=== PATIENT | female | born 1955 | race Caucasian/White ===

== ENCOUNTER → 2018-04-15 | Outpatient (REF) | payer OTHER ==
[2018-04-15 13:12] LABS: ALBUMIN 3.6 GM/DL (3.2-5.2); ALBUMIN/GLOBULIN RATIO 1.03 (1.00-1.93); ALKALINE PHOSPHATASE 66 U/L (45-117); ALT/SGPT 27 U/L (12-78); ANION GAP 8 MEQ/L (8-16); AST/SGOT 23 U/L (7-37); BILIRUBIN,TOTAL 0.6 MG/DL (0.2-1.0); BLOOD UREA NITROGEN 22 MG/DL (7-18); CALCIUM LEVEL 9.4 MG/DL (8.8-10.2); CARBON DIOXIDE LEVEL 29 MEQ/L (21-32); CHLORIDE LEVEL 104 MEQ/L (98-107); CHOLESTEROL LEVEL 224 MG/DL (<200); CHOLESTEROL RISK RATIO 2.461 (<5); CREATININE FOR GFR 1.12 MG/DL (0.55-1.30); FREE T4 1.03 NG/DL (0.76-1.46); GLOMERULAR FILTRATION RATE 52.3 (>45); GLUCOSE, FASTING 96 MG/DL (70-100); HDL CHOLESTEROL 91 MG/DL (>40); LDL CHOLESTEROL 122.6 MG/DL (<100); NON-HDL-C 133 MG/DL; POTASSIUM SERUM 4.7 MEQ/L (3.5-5.1); SODIUM LEVEL 141 MEQ/L (136-145); THYROID STIMULATING HORMONE 0.065 uIU/ML (0.358-3.740); TOTAL PROTEIN 7.1 GM/DL (6.4-8.2); TRIGLYCERIDES LEVEL 52 MG/DL (<150)
[2018-04-15 16:47] LABS: TOTAL 25(OH) VITAMIN D 91.8 NG/ML (30.0-100.0)
== END ==
LOC: M LABDRAW1 12:01
DX: E06.3 Autoimmune thyroiditis (principal)

== ENCOUNTER → 2019-03-18 | Outpatient (REF) | payer OTHER ==
[2019-03-19 11:29] LABS: HEMATOCRIT 42.1 % (36.0-47.0); HEMOGLOBIN 13.8 g/dl (12.0-15.5); MEAN CORPUSCULAR HEMOGLOBIN 31.6 pg (27.0-33.0); MEAN CORPUSCULAR HGB CONC 32.8 g/dl (32.0-36.5); MEAN CORPUSCULAR VOLUME 96.3 fl (80.0-96.0); PLATELET COUNT, AUTOMATED 154 10^3/uL (150-450); RED BLOOD COUNT 4.37 10^6/uL (4.00-5.40); WHITE BLOOD COUNT 4.9 10^3/uL (4.0-10.0)
[2019-03-19 11:44] LABS: ALBUMIN 3.7 GM/DL (3.2-5.2); ALT/SGPT 22 U/L (12-78); BILIRUBIN,TOTAL 0.6 MG/DL (0.2-1.0); BLOOD UREA NITROGEN 15 MG/DL (7-18); CALCIUM LEVEL 8.9 MG/DL (8.8-10.2); CARBON DIOXIDE LEVEL 28 MEQ/L (21-32); CHLORIDE LEVEL 107 MEQ/L (98-107); CHOLESTEROL LEVEL 170 MG/DL (<200); CHOLESTEROL RISK RATIO 2.236 (<5); CREATININE FOR GFR 0.91 MG/DL (0.55-1.30); FREE T4 1.57 NG/DL (0.76-1.46); GLOMERULAR FILTRATION RATE > 60.0 (>45); GLUCOSE, FASTING 92 MG/DL (70-100); HDL CHOLESTEROL 76 MG/DL (>40); LDL CHOLESTEROL 84 MG/DL (<100); NON-HDL-C 94 MG/DL; POTASSIUM SERUM 4.3 MEQ/L (3.5-5.1); SODIUM LEVEL 141 MEQ/L (136-145); THYROID STIMULATING HORMONE 0.007 uIU/ML (0.358-3.740); TOTAL PROTEIN 7.1 GM/DL (6.4-8.2); TRIGLYCERIDES LEVEL 49 MG/DL (<150)
== END ==
LOC: M LABDRAWC 11:09
PROVIDERS: ATTEND Internal Medicine Endocrinology, Diabetes & Metabolism
DX: E06.3 Autoimmune thyroiditis (principal); E78.00 Pure hypercholesterolemia, unspecified

== ENCOUNTER → 2019-05-27 | Outpatient (REF) | payer BC ==
[~2019-05-27] MED LIST: ALLERPLEX PO; ALPR0.5T3 PO; ASPI81TA85 PO; B-COTAB25 PO; BACITAB PO; CBD OIL SL; COQ-100C5 PO; CYTO5TAB8 PO; D31000CA4 PO; FLON1SPR NARES; FOLI1TAB11 PO; GINK60CA2 PO; LORA-674 PO; MAGN100T PO; MELA3TAB41 PO; METO1TAB32 PO; OXYC-517 PO; SIMV10TA2 PO; SYNT75TA PO; VENTAER INH
[2019-05-27 17:53] LABS: FREE T4 1.21 NG/DL (0.76-1.46); THYROID STIMULATING HORMONE 0.021 uIU/ML (0.358-3.740)
== END ==
LOC: M LABDRAWC 16:44
PROVIDERS: ATTEND Internal Medicine Endocrinology, Diabetes & Metabolism
DX: E06.3 Autoimmune thyroiditis (principal); E78.00 Pure hypercholesterolemia, unspecified

== ENCOUNTER 2019-05-30 09:39 | Observation (INO) | payer BC, OTHER ==
[~2019-05-30] VITALS: Ht 162.6 cm; Wt 74.2 kg
[2019-05-30] MEDS ORDERED: ONDANSETRON 4MG/2ML VIAL (J2405) IV ONE ×2 (09:45→11:45)
[2019-05-30] MEDS ORDERED: SYNT75TA PO (10:00)
[2019-05-30] MEDS ORDERED: NS 1,000 ML IV ONE (10:00)
[2019-05-30] MEDS ORDERED: METO1TAB32 PO (10:00)
[2019-05-30] MEDS ORDERED: CYTO5TAB8 PO (10:00)
[2019-05-30] MEDS ORDERED: FLON1SPR NARES (10:08)
[2019-05-30 10:24] LABS: BASO % 0.3 % (0.0-1.0); EOS % 0.6 % (0.0-3.0); HEMATOCRIT 40.3 % (36.0-47.0); HEMOGLOBIN 13.2 g/dl (12.0-15.5); LYMPH # 2.4 10^3/uL (1.5-5.0); MEAN CORPUSCULAR HGB CONC 32.8 g/dl (32.0-36.5); MEAN CORPUSCULAR VOLUME 94.6 fl (80.0-96.0); MONO # 0.7 10^3/uL (0.0-0.8); MONO % 10.1 % (0.0-5.0); NEUTROPHILS # 3.6 10^3/uL (1.5-8.5); NEUTROPHILS % 52.9 % (36.0-66.0); PLATELET COUNT, AUTOMATED 143 10^3/uL (150-450); RED BLOOD COUNT 4.26 10^6/uL (4.00-5.40); WHITE BLOOD COUNT 6.7 10^3/uL (4.0-10.0)
[2019-05-30 10:47] LABS: INR 1.1; PROTHROMBIN TIME 13.9 SECONDS (11.8-14.0)
[2019-05-30 10:48] LABS: PARTIAL THROMBOPLASTIN TIME 24.8 SECONDS (25.0-38.4)
[2019-05-30 10:57] LABS: ALBUMIN 3.3 GM/DL (3.2-5.2); ALT/SGPT 20 U/L (12-78); BILIRUBIN,DIRECT 0.1 MG/DL (0.0-0.2); BILIRUBIN,TOTAL 0.5 MG/DL (0.2-1.0); BLOOD UREA NITROGEN 15 MG/DL (7-18); CALCIUM LEVEL 8.5 MG/DL (8.8-10.2); CARBON DIOXIDE LEVEL 26 MEQ/L (21-32); CHLORIDE LEVEL 108 MEQ/L (98-107); CREATININE FOR GFR 0.83 MG/DL (0.55-1.30); GLOMERULAR FILTRATION RATE > 60.0 (>45); GLUCOSE, FASTING 91 MG/DL (70-100); LIPASE 63 U/L (73-393); POTASSIUM SERUM 4.1 MEQ/L (3.5-5.1); SODIUM LEVEL 141 MEQ/L (136-145); TOTAL PROTEIN 6.3 GM/DL (6.4-8.2)
[2019-05-30] MEDS ORDERED: MORPHINE 2 MG/ML 1ML SYRINGE (J2270) IV ONE (11:45)
--- NOTE | 2019-05-30 12:05 | REP ---
AP CHEST: 05/30/2019. Clinical history: Trauma. Findings: No prior study. This single frontal view shows the lungs well inflated and without infiltrate, effusion, atelectasis or mass. The heart, mediastinal and hilar contours are normal. Aorta and airway intact. No free air the diaphragm. No pneumothorax. Visualized bones without fracture or destructive lesion. Impression: 1. Negative chest for any acute finding. Electronically Signed by Farooq Yuen MD 05/30/2019 07:36 P
--- NOTE | 2019-05-30 12:05 | REP ---
AP LATERAL RIGHT HIP: 05/30/2019. Comparison: None. Clinical history: Trauma. Findings: AP and frog-leg views show small acetabular roof spur without femoral head spurs. There is no narrowing of the hip joint space, iliac wing and right SI joint grossly intact. The acetabulum, pubic rami without fracture. The SI joints, symphysis pubis were normal. Femoral head neck, trochanters and proximal shaft intact. No evidence of AVN. Minor degenerative changes lower lumbar spine. Impression: 1. There is minimal degenerative change at the hip with acetabular roof spurring but no joint space narrowing, fracture, AVN or other acute finding. Electronically Signed by Farooq Yuen MD 05/30/2019 07:36 P
--- NOTE | 2019-05-30 12:06 | REP ---
RIGHT TIBIA-FIBULA: 05/30/2019. Clinical history: Trauma. Comparison: Right ankle this date. Findings: Four views to encompass the entirety of the tibia and fibula were provided. Shaft of the tibia and fibula are intact. There is a bimalleolar fracture noted of the medial and lateral malleoli. The tibial plateau fracture. Minor degenerative changes at the knee. Minor soft tissue swelling lower leg and ankle. Impression: 1. Bimalleolar fracture noted. Remainder of the tibia and fibula unremarkable. Electronically Signed by Farooq Yuen MD 05/30/2019 07:36 P
--- NOTE | 2019-05-30 12:07 | REP ---
RIGHT ANKLE COMPLETE: 05/30/2019. Comparison: 05/30/2019 right tibia-fibula. Clinical history: Trauma. Findings: Four view show fracture through the medial malleolus parallel to the horizontal plane of the mortise joint. There is widening of the mortise joint medially. Some lateral subluxation of the talus on the tibial plafond is noted distal fibular fracture with intra-articular extension and lateral angulation of the distal fragment noted. On the lateral view there is no anterior posterior subluxation of the talus. Subtalar joints intact. No heel spurs. Talonavicular, calcaneocuboid joints grossly normal. Impression: 1. Bimalleolar fracture with displacement of the medial malleolar fragment and widening/asymmetry of the mortise joint including some mild lateral subluxation of the talus on the tibial plafond. Electronically Signed by Farooq Yuen MD 05/30/2019 07:37 P
[2019-05-30] MEDS ORDERED: COQ-100C5 PO (13:16)
[2019-05-30] MEDS ORDERED: MELA3TAB41 PO (13:16)
[2019-05-30] MEDS ORDERED: ALLERPLEX PO (13:16)
[2019-05-30] MEDS ORDERED: FOLI1TAB11 PO (13:16)
[2019-05-30] MEDS ORDERED: GINK60CA2 PO (13:16)
[2019-05-30] MEDS ORDERED: SIMV10TA2 PO (13:16)
[2019-05-30] MEDS ORDERED: MAGN100T PO (13:16)
[2019-05-30] MEDS ORDERED: LORA-674 PO (13:16)
[2019-05-30] MEDS ORDERED: BACITAB PO (13:16)
[2019-05-30] MEDS ORDERED: VENTAER INH (13:19)
[2019-05-30] MEDS ORDERED: ALPR0.5T3 PO (13:19)
[2019-05-30] MEDS ORDERED: B-COTAB25 PO (13:19)
[2019-05-30] MEDS ORDERED: D31000CA4 PO (13:19)
[2019-05-30] MEDS ORDERED: CBD OIL SL (13:20)
--- NOTE | 2019-05-30 14:28 | HPE ---
DATE OF CONSULTATION: 05/30/2019 HISTORY OF PRESENT ILLNESS: Bethany is a very pleasant 63-year-old female accompanied by her , who sustained a fall outside of her home on [address] in the [facility], when she slipped on some wet blocks. She injured herself just before midnight on 05/29/2019. She went to [facility] in [place] and x-rays there revealed a bimalleolar ankle fracture, according to the emergency room (ER) physician there that called me. She asked that the patient be transferred to [facility] for surgical management, as the [place] herself. They also did not have orthopedic surgery available there. The appropriate transfer was then carried out and she was also sent to [facility], but someone had evaluated her. She had previously been splinted, but got new x-rays and they revealed no fractures of the hip, but there was a bimalleolar ankle fracture with some subluxation. Patient is reporting moderate pain in her ankle. Denied numbness or tingling. She had pain in the knee from an abrasion. The patient's past medical history, past surgical history, medications, allergies, social history and review of systems: Please see the intake form from the ER. Of note, she does have a supraventricular tachycardia and takes metoprolol. To the past surgical history above, cervical and lumbar spine procedures. She did well with those. She does not smoke, abuse alcohol or illicit drugs. They spend most of the year down in [place] in [place], but they do have a house up here in the [facility]. She is very active. PHYSICAL EXAMINATION: Reveals a middle-aged female in no distress. She is alert and oriented times three. NEUROLOGIC: Appropriate mood and affect. She is very pleasant to talk to. CARDIOVASCULAR: 2+ posterior tibial (PT) and dorsalis pedis (DP) pulses. PULMONARY: Nonlabored breathing. ABDOMEN: Soft, nontender, nondistended. SKIN: In the right ankle reveals no open wounds. There is an abrasion over the right patella. There is mild to moderate swelling of the right ankle. There is a very subtle deformity consistent with lateral subluxation details. She is able to fire extensor hallucis longus (EHL) and flexor hallucis longus (FHL). Sensation light touch is grossly intact. X-rays of the right ankle from [facility] revealed a bimalleolar ankle fracture with some lateral subluxation of the talus. No proximal fractures on the tibia/fibula films. Hip x-rays were unremarkable. ASSESSMENT AND PLAN: Bethany is a 63-year-old female with an unstable bimalleolar right ankle fracture with subluxation. This requires open reduction internal fixation. We did discuss briefly some of the risks and benefits, but definitive surgery will be performed by Dr. Wanda Dixon, a foot/ankle specialist, and they will carry out a full conversation about risks and benefits. The patient will be admitted to my service and we will look to proceed with surgery as soon as an operating room (OR) is available at [facility]. The patient received some intravenous (IV) morphine and then I applied a well-padded sugar-tong splint made out of plaster, applied a Nam's maneuver and felt the talus reduce and then hold it there. The splint was set. She was elevated with three pillows.
[2019-05-30 14:30] VITALS: BP 115/63
[2019-05-30] MEDS ORDERED: ONDANSETRON 4MG/2ML VIAL (J2405) IV PRN ×2 (15:00→22:15)
[2019-05-30] MEDS ORDERED: MORPHINE 4 MG/ML 1ML VIAL/SYRINGE (J2270) IV PRN ×2 (15:00→23:30)
[2019-05-30] MEDS: LR 1,000 ML IV SCH ×2 (15:08→23:05)
[2019-05-30] MEDS ORDERED: ceFAZolin 2 GM/D5W 50 ML IV BAG (J0690 PER 500MG) As Ordered ONE (17:38)
[2019-05-30] MEDS ORDERED: ACETAMINOPHEN 1000MG 100ML IV BTL (OFIRMEV) (J0131 PER 10MG) As Ordered ONE (18:14)
[2019-05-30] MEDS ORDERED: HYDROmorphone HCL 2 MG/ML 1ML VIAL (J1170) As Ordered ONE (19:02)
[2019-05-30] MEDS ORDERED: fentaNYL 250 MCG/5 ML INJECTION (J3010) As Ordered ONE (19:05)
[2019-05-30] MEDS ORDERED: MIDAZOLAM INJ 2 MG/2 ML VIAL (J2250) As Ordered ONE (19:05)
[2019-05-30] MEDS ORDERED: ROCURONIUM BROMIDE 50 MG/5 ML VIAL As Ordered ONE (19:05)
[2019-05-30] MEDS ORDERED: LIDOCAINE 2% INJ 100 MG/5 ML SDV (FOR ANES.) As Ordered ONE (19:05)
[2019-05-30] MEDS ORDERED: ONDANSETRON 4MG/2ML VIAL (J2405) As Ordered ONE (19:05)
[2019-05-30] MEDS ORDERED: dexameTHASONE 4 MG/ML 1ML VIAL (J1100) As Ordered ONE (19:05)
[2019-05-30] MEDS ORDERED: PROPOFOL 200 MG/20 ML VIAL As Ordered ONE (19:05)
--- NOTE | 2019-05-30 19:24 | ECGEPIP ---
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
[2019-05-30] MEDS ORDERED: BUPIVACAINE HCL 0.5% 30 ML VIAL As Ordered ONE (19:43)
[2019-05-30] MEDS ORDERED: LABETALOL HCL 100 MG/20 ML VIAL As Ordered ONE (20:11)
[2019-05-30] MEDS ORDERED: SUGAMMADEX SODIUM 500 MG/5 ML VIAL (BRIDION) As Ordered ONE (20:54)
[2019-05-30] MEDS ORDERED: NALOXONE INJ 0.4 MG/1 ML VIAL (J2310) As Ordered ONE (21:48)
[2019-05-30] MEDS ORDERED: LR 1,000 ML IV SCH (22:15)
[2019-05-30] MEDS ORDERED: fentaNYL 100 MCG/2 ML INJECTION (J3010) IV PRN (22:15)
[2019-05-30] MEDS ORDERED: PERCOCET 5MG/325MG TAB PO PRN (22:15)
[2019-05-30 23:00] VITALS: BP 137/67
[2019-05-30 23:30] VITALS: BP 127/62
[2019-05-30] MEDS ORDERED: oxyCODONE 5MG TAB PO PRN (23:30)
[2019-05-30] MEDS: DOCUSATE SODIUM 100 MG CAP PO SCH (23:48)
[2019-05-30] MEDS: ASPIRIN 81 MG CHEW TABLET PO SCH (23:48)
[2019-05-31] VITALS (7 sets, daily range): BP systolic 120–135; BP diastolic 59–64
[2019-05-31] MEDS: ceFAZolin SOD 2 GM in IV 1 EA IV SCH ×2 (03:35→12:44)
[2019-05-31] MEDS: ACETAMINOPHEN 500 MG TAB PO SCH ×3 (05:09→21:07)
[2019-05-31] MEDS ORDERED: OXYC-517 PO (06:14)
[2019-05-31] MEDS ORDERED: ASPI81TA85 PO (06:14)
[2019-05-31] MEDS: ASPIRIN 81 MG CHEW TABLET PO SCH ×2 (09:35→21:07)
[2019-05-31] MEDS: DOCUSATE SODIUM 100 MG CAP PO SCH ×2 (09:35→21:07)
[2019-05-31] MEDS: oxyCODONE 5MG TAB PO PRN ×3 (09:37→18:56)
--- NOTE | 2019-05-31 10:26 | REP ---
RIGHT ANKLE COMPLETE: 05/30/2019. Clinical history: Bimalleolar fracture for ORIF in OR. 15 images from C-arm fluoroscopy provided to Dr. Dixon of the orthopedic division are reviewed. Comparison: Ankle series 05/30/2019. Findings: 15 views show placement of compression side plate and multiple screws in the distal fibula and two lag screws in the medial malleolus with re-establishment essentially anatomic alignment of the ankle mortise in both distal fibula and medial malleolar fractures. Fluoroscopy time: 4 minutes 1 second. Electronically Signed by Farooq Yuen MD 05/31/2019 01:09 P
[2019-06-01] MEDS: oxyCODONE 5MG TAB PO PRN ×3 (01:40→13:00)
[2019-06-01] MEDS: ACETAMINOPHEN 500 MG TAB PO SCH ×2 (05:12→12:59)
[2019-06-01 06:00] VITALS: BP 123/60
--- NOTE | 2019-06-01 07:52 | RO ---
DATE OF PROCEDURE: 05/30/2019 PREOPERATIVE DIAGNOSIS: Right bimalleolar ankle fracture. POSTOPERATIVE DIAGNOSIS: Right bimalleolar ankle fracture. PROCEDURE: Open reduction internal fixation (ORIF) right bimalleolar fracture. This will be with a modifier 22 for severely comminuted fracture and osteopenic bone. SURGEON: Wanda Dixon MD PUBLIC HEALTH ENGINEER: None. ANESTHESIA: GETA ESTIMATED BLOOD LOSS: 25 mL. COMPLICATIONS: None. IMPLANTS: Arthrex distal fibula locking plate with associated 2.7 mm locking screws and 3.5 mm cortical screws for the distal fibula and two 4.0 mm cannulated partially threaded screws for the medial malleolus. COMPLICATIONS: None. CONDITION: Stable to recovery. INDICATIONS: Bethany Taylor sustained a right ankle fracture after a slip on the granite floor while at her house on the [facility]. She was seen at [facility] and transferred to [facility] further management. The patient was found to have a bimalleolar ankle fracture with lateral subluxation of the talus. Risks and benefits of surgery were discussed with the patient in detail and include, but are not limited to, infection, damage to nerves and blood vessels, continued pain and stiffness, need for additional procedures. Informed consent was obtained in the preop area. PROCEDURE: Patient was met in the preoperative holding area where her right lower extremity was marked as the correct operative site. Her splint was taken down and soft tissues were amenable for surgery. She was then taken to the operating room, placed in the supine position on the operating room table. A bump was placed under the ipsilateral hip. Her bony prominences were well padded. She underwent anesthesia without difficulty. A well padded tourniquet was placed on the right upper thigh. Antibiotics were given within 60 minutes prior to incision. The right lower extremity underwent a chlorhexidine scrub. It was then prepped and draped in the normal sterile fashion. An official time out was held where the correct patient, operative side and operative procedure were verified. At this point, the right lower extremity was exsanguinated with an esmarch bandage. Tourniquet was inflated to 250 mmHg and was up for 140 minutes. An incision was made over the posterolateral aspect of the distal fibula. Blunt dissection to the level of the fracture was performed with care to avoid the superficial peroneal nerve. The fracture was identified. It was found to be extensively comminuted in at least 6 to 8 different fragments. It was shortened and laterally translated as well. The fracture was exposed thoroughly. A curette was used to debride the fracture site. Copious irrigation was performed. It was somewhat difficult to barrel liner the appropriate reduction and length of the distal fibula given the comminution of the fracture. It was not ammenable to reduction using a pointed reduction or serrated clamp. I pinned the distal segment to the talus and was able to gain a reduction at the fracture site and appropriate length in this manner. Radiographic dime sign indicated the fibula was out to length. I was then able to pin across the fracture site which provided a small amount of stabilization. At this point, there was significant translation of the talus and did decide to fix the medial side to bakery helper with reduction laterally. An incision was made just medially over the medial malleolus. Fracture was identified and clean of hematoma and debris. The joint was exposed and there was very mild damage to the anteriomedial talar cartilage. The fracture was reduced using a pointed reduction clamp. Reduction was satisfactory on AP, lateral, mortise views. It was pinned in place and then two 4.0 mm cannulated screws were placed across the fracture site. Following this, I again examined the medial aspect of the tibiotalar joint. There was no hardware encroaching the joint and again there was good alignment of the fracture. This was copiously irrigated. Soft tissues were closed using #3-0 Vicryl and skin was closed using #3-0 nylon. Attention was then turned back to the lateral aspect of the fibula. I selected Arthrex distal fibula locking plate and this was secured distally to the fracture using 2.7 mm locking screws. Following this, I was able to also use the plate as a reduction tool and gain a satisfactory reduction using the plate and three or four different K-wires. I was satisfied with the fibula length, alignment and rotation on AP, mortise and lateral views. I then secured the plate proximally with three 3.5 mm cortical screws. There was good purchase with these screws. Final fluoroscopic radiographs were performed and showed satisfactory reduction and hardware placement. Copious irrigation was performed. The periosteum was closed distally over the plate using #2-0 Vicryl. Soft tissues were closed using #3-0 Vicryl and skin was closed using #3-0 nylon. The patient was placed into a well padded cast. She was extubated and transferred to the recovery room in stable condition. PLAN: The patient will be non-weightbearing on the right lower extremity. She will be on antibiotics for 24 hours. We will see her back in 1-2 weeks for cast change and suture removal, somewhere between 2-3 weeks. DVT prophylaxis will be aspirin starting post-operative day one. JOE
[2019-06-01] MEDS: ASPIRIN 81 MG CHEW TABLET PO SCH (08:08)
[2019-06-01] MEDS: DOCUSATE SODIUM 100 MG CAP PO SCH (08:08)
[2019-06-01 10:19] VITALS: BP 131/82
--- NOTE | 2019-06-04 14:38 | DSES ---
DATE OF ADMISSION: 05/30/2019 DATE OF DISCHARGE: 06/01/2019 ATTENDING PHYSICIAN: Dr. Wanda Dixon ADMISSION DIAGNOSIS: Right bimalleolar ankle fracture. DISCHARGE DIAGNOSIS: Right bimalleolar ankle fracture status post open reduction, internal fixation (ORIF). OPERATION PERFORMED: Right bimalleolar ankle ORIF. HISTORY: This is a 63-year-old female patient who sustained a right bimalleolar ankle fracture after slipping on a wet granite floor. She was transferred to [facility] and found to have a right bimalleolar ankle fracture with lateral talar subluxation. Risks and benefits of the surgery were discussed with the patient. She was consented for right ankle bimalleolar ORIF. HOSPITAL COURSE: The patient was admitted for surgery and underwent a right bimalleolar ankle ORIF, which was uneventful. She did well in the postoperative period and her hospital course was without complications. Her pain was controlled on the day of discharge and she will resume her preoperative medications along with oral pain medications for pain control, as well as 24-hour antibiotics. Instructions were given to include but not limited to wound monitoring, weightbearing and activity limitations. She will follow up in our office in 1-2 weeks for cast change and 2-3 weeks for suture removal. She will likely stay in this cast for least 3 weeks. Please refer to the medical record for further details.
== END 2019-06-01 14:05 | disposition home or self-care (01) ==
LOC: M ED 09:39 → EDBD 09:39 → M ED INP 09:40 → M MS5PR 14:26
PROVIDERS: ADMIT Orthopaedic Surgery; ATTEND Orthopaedic Surgery
DX: S82.841A Displaced bimalleolar fracture of right lower leg, initial encounter for closed fracture (principal); W01.0XXA Fall on same level from slipping, tripping and stumbling without subsequent striking against object, initial encounter; Y93.K1 Activity, walking an animal; Y92.410 Unspecified street and highway as the place of occurrence of the external cause; Y99.9 Unspecified external cause status; E03.9 Hypothyroidism, unspecified; J45.909 Unspecified asthma, uncomplicated; F41.9 Anxiety disorder, unspecified; Z87.891 Personal history of nicotine dependence
CPT/HCPCS: 27814; 71045; 73502; 73590; 73610; 80048; 80076; 83690; 85025; 85610; 85730; 86850; 86900; 86901; 93005; 96361; 96365; 96375; 96376; 97116; 97161; 97530; 99285; C1713; J0131; J0690; J1100; J1170; J2250; J2270; J2310; J2405; J3010

== ENCOUNTER → 2020-02-12 | Outpatient (REF) | payer BC ==
[~2020-02-12] MED LIST changes: -MELA3TAB41 PO; +MELA3TAB62 PO; -SIMV10TA2 PO; +SIMV10TA21 PO
[2020-02-12 16:28] LABS: HEMATOCRIT 39.9 % (36.0-47.0); MEAN CORPUSCULAR HEMOGLOBIN 31.2 pg (27.0-33.0); MEAN CORPUSCULAR HGB CONC 32.6 g/dl (32.0-36.5); MEAN CORPUSCULAR VOLUME 95.7 fl (80.0-96.0); PLATELET COUNT, AUTOMATED 164 10^3/uL (150-450); RED BLOOD COUNT 4.17 10^6/uL (4.00-5.40); WHITE BLOOD COUNT 4.6 10^3/uL (4.0-10.0)
[2020-02-12 16:42] LABS: BLOOD UREA NITROGEN 15 MG/DL (7-18); CALCIUM LEVEL 9.7 MG/DL (8.8-10.2); CARBON DIOXIDE LEVEL 27 MEQ/L (21-32); CHLORIDE LEVEL 107 MEQ/L (98-107); CREATININE FOR GFR 0.93 MG/DL (0.55-1.30); GLOMERULAR FILTRATION RATE > 60.0 (>45); GLUCOSE, FASTING 103 MG/DL (70-100); POTASSIUM SERUM 4.3 MEQ/L (3.5-5.1); SODIUM LEVEL 139 MEQ/L (136-145); THYROID STIMULATING HORMONE 0.073 uIU/ML (0.358-3.740)
== END ==
LOC: M LABDRAWC 16:03
DX: C50.412 Malignant neoplasm of upper-outer quadrant of left female breast (principal); Z17.0 Estrogen receptor positive status [ER+]

== ENCOUNTER → 2020-05-03 | Outpatient (REF) | payer BC ==
[~2020-05-03] MED LIST changes: -ASPI81TA85 PO; +ASPI81TA86 PO; +MELA3TAB30 PO; -MELA3TAB62 PO
[2020-05-03 19:07] LABS: FREE T4 1.02 NG/DL (0.76-1.46); THYROID STIMULATING HORMONE 3.13 uIU/ML (0.358-3.740)
== END ==
LOC: M LABDRAWC 18:28
PROVIDERS: ATTEND Internal Medicine Endocrinology, Diabetes & Metabolism
DX: E06.3 Autoimmune thyroiditis (principal)

== ENCOUNTER → 2021-02-02 | Outpatient (REF) | payer BC ==
[2021-02-02 16:54] LABS: FREE T4 0.95 NG/DL (0.76-1.46); THYROID STIMULATING HORMONE 3.76 uIU/ML (0.358-3.740)
== END ==
LOC: M LABDRAWC 16:00
PROVIDERS: ATTEND Internal Medicine Endocrinology, Diabetes & Metabolism
DX: E06.3 Autoimmune thyroiditis (principal)

== ENCOUNTER → 2021-03-15 | Outpatient (REF) | payer BC ==
[2021-03-16 13:08] LABS: GLOMERULAR FILTRATION RATE > 60.0 (>45)
== END ==
LOC: M LABDRAWC 11:35
PROVIDERS: ATTEND Nurse Practitioner Family
DX: C50.912 Malignant neoplasm of unspecified site of left female breast (principal)

== ENCOUNTER → 2021-04-20 | Outpatient (REF) | payer BC ==
[2021-04-20 17:21] LABS: FREE T4 1.03 NG/DL (0.76-1.46); THYROID STIMULATING HORMONE 0.377 uIU/ML (0.358-3.740)
== END ==
LOC: M LABDRAWC 15:55
PROVIDERS: ATTEND Internal Medicine Endocrinology, Diabetes & Metabolism
DX: E06.3 Autoimmune thyroiditis (principal)

== ENCOUNTER → 2023-02-17 | Outpatient (REF) | payer BC | LOC: M WUC 17:36 | PROVIDERS: ATTEND Physician Assistant | DX: R30.0 Dysuria (principal) ==

== ENCOUNTER → 2025-04-28 | Outpatient (CLI) | payer MEDICARE ==
[~2025-04-28] MED LIST changes: +LORA-1041 PO; -LORA-674 PO
== END ==
LOC: M WUC 11:43
PROVIDERS: ATTEND Physician Assistant
DX: S60.221A Contusion of right hand, initial encounter (principal); W18.30XA Fall on same level, unspecified, initial encounter; Y92.009 Unspecified place in unspecified non-institutional (private) residence as the place of occurrence of the external cause